=== PATIENT | female | born 2000 | race Caucasian/White ===

== ENCOUNTER 2019-01-14 21:40 | Outpatient (CLI) | payer MEDICAID | END 2019-01-15 00:04 | disposition home or self-care (01) | LOC: OBT 21:40 → L-D 21:42 | DX: O62.9 Abnormality of forces of labor, unspecified (principal); Z3A.39 39 weeks gestation of pregnancy | CPT/HCPCS: 76818 ==

== ENCOUNTER 2019-01-28 10:45 | Inpatient (IN) | payer MEDICAID ==
[2019-01-28] MEDS ORDERED: IBUPROFEN 600 MG TAB PO (12:30)
[2019-01-28] MEDS ORDERED: CARBOPROST 250 MCG INJ IM ×2 (12:30→18:30)
[2019-01-28] MEDS ORDERED: OXYTOCIN 30 UNITS/LR 500 ML IV ×6 (12:30→18:30)
[2019-01-28] MEDS ORDERED: MISOPROSTOL 200 MCG TAB PR ×2 (12:30→18:30)
[2019-01-28] MEDS ORDERED: LIDOCAINE 1% (MPF) 30 ML INJ INJ ×2 (12:30→18:30)
[2019-01-28] MEDS ORDERED: METHYLERGONOVINE 0.2 MG INJ IM ×2 (12:30→18:30)
[2019-01-28] MEDS ORDERED: BUTORPHANOL 2 MG INJ IV (12:30)
[2019-01-28 13:23] LABS: ADD MAN DIFF? NO
[2019-01-28 13:24] LABS: BASOPHIL # 0.1 10^3/ul (0.0-0.1); BASOPHILS % 0.5 % (0.0-2.0); EOSINOPHILS # 0.2 10^3/ul (0.0-0.5); EOSINOPHILS % 1.2 % (0.0-7.0); HEMATOCRIT 35.3 % (37.0-47.0); HEMOGLOBIN 11.3 g/dl (12.0-16.0); LYMPHOCYTES # 2.3 10^3/ul (0.8-2.9); LYMPHOCYTES % 17.1 % (18.0-55.0); MEAN CORPUSCULAR HEMOGLOBIN 26.1 pg (29.0-33.0); MEAN CORPUSCULAR VOLUME 81.5 fl (72.0-104.0); MEAN PLATELET VOLUME 10.5 fl (7.4-10.4); MONOCYTE # 0.7 10^3/ul (0.3-0.9); MONOCYTES % 5.6 % (0.0-13.0); NEUTROPHIL # 9.9 10^3/ul (1.6-7.5); NEUTROPHILS % 74.5 % (30.0-74.0); PLATELET COUNT 273 10^3/UL (140-415); RED BLOOD COUNT 4.33 10^6/ul (4.20-5.40); RED CELL DISTRIBUTION WIDTH 14.3 % (11.5-14.5)
[2019-01-28 13:24] LABS: WHITE BLOOD COUNT 13.3 10^3/ul (4.8-10.8)
[2019-01-28 13:45] LABS: INR 0.89; PROTIME 12.2 Sec (11.9-14.9)
[2019-01-28 13:46] LABS: PARTIAL THROMBOPLASTIN TIME 25.9 Sec (23.0-35.0)
[2019-01-28] MEDS: LACTATED RINGER'S 1,000 ML IV ×2 (13:56→20:23)
[2019-01-28 16:48] LABS: RAPID PLASMA REAGIN NONREACTIVE (NR)
[2019-01-28] MEDS ORDERED: MISOPROSTOL 50 MCG CAPSULE PO (22:30)
[2019-01-29] MEDS: LACTATED RINGER'S 1,000 ML IV ×5 (00:34→15:43)
[2019-01-29] MEDS: OXYTOCIN 30 UNITS/LR 500 ML IV ×2 (01:04→21:13)
[2019-01-29] MEDS ORDERED: FENTAnyl 2MCG/ML-ROPIV 0.2% 100 ML ×2 (03:38→10:57)
[2019-01-29] MEDS: ACETAMINOPHEN 500 MG TAB PO (15:25)
[2019-01-29] MEDS: CLINDAMYCIN 900 MG/D5W (PMX) 50 ML IVPB (15:26)
[2019-01-29] MEDS ORDERED: CEFAZOLIN 2 GM/50 ML (PMX) 50 ML IVPB ×2 (15:30→15:37)
[2019-01-29] MEDS: CITRIC ACID/NA CITRATE 30 ML CUP PO (15:44)
[2019-01-29] MEDS: FAMOTIDINE 20 MG INJ IV (15:44)
[2019-01-29] MEDS: METOCLOPRAMIDE 10 MG INJ IV (15:45)
[2019-01-29] MEDS ORDERED: morphine SULFATE/PF (10 MG/10 ML) INJ (15:57)
[2019-01-29] MEDS ORDERED: AMPICILLIN 2 GM/NS (PMX) 100 ML (15:59)
[2019-01-29] MEDS: GENTAMICIN 80 MG/NS (PMX) 50 ML IVPB ×2 (16:00→23:08)
[2019-01-29] MEDS ORDERED: LIDOCAINE 1.5%/EPI MPF (SDV) 30 ML VIAL (16:07)
[2019-01-29] MEDS ORDERED: PHENYLephrine (100 MCG/ML) 10ML SYG (16:20)
[2019-01-29] MEDS ORDERED: NA BICARBONATE 8.4% 50 ML SYG (16:20)
[2019-01-29] MEDS ORDERED: ONDANSETRON 4 MG INJ (16:25)
[2019-01-29] MEDS ORDERED: DIPHENHYDRAMINE 50 MG INJ IV ×2 (16:30→17:30)
[2019-01-29] MEDS ORDERED: ONDANSETRON 4 MG INJ IV ×2 (16:30→17:30)
[2019-01-29] MEDS ORDERED: FENTAnyl 50 MCG/ML VIAL IV ×2 (16:30)
[2019-01-29] MEDS ORDERED: HYDROmorphONE 1 MG/5 ML IV SYRINGE IV ×3 (16:30)
[2019-01-29] MEDS ORDERED: PROCHLORPERAZINE 10 MG INJ IV (16:30)
[2019-01-29] MEDS ORDERED: MEPERIDINE 25 MG INJ IV (16:30)
[2019-01-29] MEDS ORDERED: NALOXONE (0.4 MG/ML) INJ IV (17:30)
[2019-01-29] MEDS ORDERED: ZOLPIDEM 5 MG TAB PO (17:30)
[2019-01-29] MEDS ORDERED: HYDROmorphONE 0.5 MG/0.5 ML SYG IV ×2 (17:30)
[2019-01-29] MEDS: AMPICILLIN 2 GM/NS (PMX) 100 ML IVPB (18:00)
[2019-01-29] MEDS: FENTAnyl 50 MCG/ML VIAL IV (18:07)
[2019-01-29] MEDS: KETOROLAC 30 MG INJ IV (19:24)
[2019-01-29] MEDS ORDERED: MISOPROSTOL 200 MCG TAB PR (20:00)
[2019-01-29] MEDS ORDERED: CARBOPROST 250 MCG INJ IM (20:00)
[2019-01-29] MEDS ORDERED: METHYLERGONOVINE 0.2 MG INJ IM (20:00)
[2019-01-29] MEDS ORDERED: NACL 0.9% 3 ML SYG IV (20:00)
[2019-01-29] MEDS ORDERED: OXYTOCIN 30 UNITS/LR 500 ML IV (20:00)
[2019-01-29] MEDS: SENNA/DOCUSATE NA (8.6MG/50MG) TAB PO (21:42)
[2019-01-30] MEDS: AMPICILLIN 2 GM/NS (PMX) 100 ML IVPB ×3 (00:18→12:00)
[2019-01-30] MEDS: LANOLIN HPA 1 PKT TOP (00:19)
[2019-01-30] MEDS: CLINDAMYCIN 900 MG/D5W (PMX) 50 ML IVPB ×2 (03:03→09:12)
[2019-01-30] MEDS: KETOROLAC 30 MG INJ IV ×2 (05:20→14:20)
[2019-01-30] MEDS: GENTAMICIN 80 MG/NS (PMX) 50 ML IVPB (07:21)
[2019-01-30 07:24] LABS: ADD MAN DIFF? NO
[2019-01-30 07:29] LABS: BASOPHILS % 0.2 % (0.0-2.0); EOSINOPHILS # 0.1 10^3/ul (0.0-0.5); EOSINOPHILS % 0.3 % (0.0-7.0); HEMATOCRIT 25.4 % (37.0-47.0); HEMOGLOBIN 8.3 g/dl (12.0-16.0); LYMPHOCYTES % 10.7 % (18.0-55.0); MEAN CORPUSCULAR HEMOGLOBIN 26.3 pg (29.0-33.0); MEAN CORPUSCULAR HGB CONC 32.7 g/dl (32.0-37.0); MEAN CORPUSCULAR VOLUME 80.4 fl (72.0-104.0); MEAN PLATELET VOLUME 10.4 fl (7.4-10.4); MONOCYTE # 1.4 10^3/ul (0.3-0.9); MONOCYTES % 7.8 % (0.0-13.0); NEUTROPHIL # 14.7 10^3/ul (1.6-7.5); NEUTROPHILS % 80.4 % (30.0-74.0); PLATELET COUNT 191 10^3/UL (140-415); RED BLOOD COUNT 3.16 10^6/ul (4.20-5.40); RED CELL DISTRIBUTION WIDTH 14.6 % (11.5-14.5)
[2019-01-30 07:29] LABS: WHITE BLOOD COUNT 18.3 10^3/ul (4.8-10.8)
[2019-01-30] MEDS: SENNA/DOCUSATE NA (8.6MG/50MG) TAB PO ×2 (09:12→21:10)
[2019-01-30] MEDS: LACTATED RINGER'S 1,000 ML IV ×2 (11:30→19:30)
[2019-01-30] MEDS: CYANOCOBALAMIN 1000 MCG INJ IM (16:17)
[2019-01-30] MEDS: IBUPROFEN 600 MG TAB PO ×2 (18:00→23:38)
[2019-01-30] MEDS: FERROUS SULFATE (EC) 325 MG TAB PO (21:10)
[2019-01-30] MEDS: OXYCODONE/ACETAMINOPHEN (5/325) TAB PO (21:11)
[2019-01-31] MEDS: IBUPROFEN 600 MG TAB PO ×3 (06:00→17:56)
[2019-01-31] MEDS: OXYCODONE/ACETAMINOPHEN (5/325) TAB PO ×2 (09:38→23:49)
[2019-01-31] MEDS: FERROUS SULFATE (EC) 325 MG TAB PO ×3 (09:39→21:52)
[2019-01-31] MEDS: SENNA/DOCUSATE NA (8.6MG/50MG) TAB PO ×2 (09:39→21:52)
[2019-01-31] MEDS: PRENATAL VITAMIN PO (11:38)
[2019-02-01] MEDS: IBUPROFEN 600 MG TAB PO ×4 (06:05→18:01)
[2019-02-01 07:52] LABS: ADD MAN DIFF? NO
[2019-02-01 07:57] LABS: BASOPHILS % 0.2 % (0.0-2.0); EOSINOPHILS # 0.2 10^3/ul (0.0-0.5); EOSINOPHILS % 0.9 % (0.0-7.0); HEMATOCRIT 25.3 % (37.0-47.0); HEMOGLOBIN 8.2 g/dl (12.0-16.0); LYMPHOCYTES % 11.8 % (18.0-55.0); MEAN CORPUSCULAR HEMOGLOBIN 26.6 pg (29.0-33.0); MEAN CORPUSCULAR HGB CONC 32.4 g/dl (32.0-37.0); MEAN CORPUSCULAR VOLUME 82.1 fl (72.0-104.0); MEAN PLATELET VOLUME 9.7 fl (7.4-10.4); MONOCYTE # 0.7 10^3/ul (0.3-0.9); MONOCYTES % 4.1 % (0.0-13.0); NEUTROPHIL # 14.1 10^3/ul (1.6-7.5); NEUTROPHILS % 81.6 % (30.0-74.0); PLATELET COUNT 221 10^3/UL (140-415); RED BLOOD COUNT 3.08 10^6/ul (4.20-5.40); RED CELL DISTRIBUTION WIDTH 14.8 % (11.5-14.5)
[2019-02-01 07:57] LABS: WHITE BLOOD COUNT 17.3 10^3/ul (4.8-10.8)
[2019-02-01] MEDS: OXYCODONE/ACETAMINOPHEN (5/325) TAB PO ×2 (08:41→15:12)
[2019-02-01] MEDS: FERROUS SULFATE (EC) 325 MG TAB PO ×2 (08:41→12:17)
[2019-02-01] MEDS: SENNA/DOCUSATE NA (8.6MG/50MG) TAB PO (08:42)
[2019-02-01] MEDS: PRENATAL VITAMIN PO (08:42)
[2019-02-01] MEDS: DIPHTH/TET/ACEL PERTUSS (ADULT) 0.5 ML VIAL IM* (09:00)
== END 2019-02-01 18:30 | disposition home or self-care (01) | DRG 786 ==
LOC: OBT 10:45 → L-D 01-29 15:52 → PP1 01-29 19:39 → OBT 11:45 → L-D 11:57
PROVIDERS: Obstetrics & Gynecology
PROC: 10D00Z1 Extraction of Products of Conception, Low, Open Approach (ICD-10-PCS; principal; 2019-01-29)
DX: O76 Abnormality in fetal heart rate and rhythm complicating labor and delivery (principal); O41.1230 Chorioamnionitis, third trimester, not applicable or unspecified; O75.2 Pyrexia during labor, not elsewhere classified; O90.81 Anemia of the puerperium; Z37.0 Single live birth; Z3A.39 39 weeks gestation of pregnancy
CPT/HCPCS: 62319; 85025; 85610; 85730; 86592; 86850; 86900; 86901; 99464

== ENCOUNTER 2019-02-10 14:32 | Inpatient (IN) | payer MEDICAID ==
[2019-02-10 15:04] LABS: ADD MAN DIFF? NO
[2019-02-10 15:08] LABS: BASOPHIL # 0.1 10^3/ul (0.0-0.1); BASOPHILS % 0.3 % (0.0-2.0); EOSINOPHILS # 0.2 10^3/ul (0.0-0.5); EOSINOPHILS % 0.8 % (0.0-7.0); HEMOGLOBIN 9.2 g/dl (12.0-16.0); LYMPHOCYTES # 1.6 10^3/ul (0.8-2.9); LYMPHOCYTES % 7.9 % (18.0-55.0); MEAN CORPUSCULAR HEMOGLOBIN 25.6 pg (29.0-33.0); MEAN CORPUSCULAR HGB CONC 31.7 g/dl (32.0-37.0); MEAN CORPUSCULAR VOLUME 80.8 fl (72.0-104.0); MEAN PLATELET VOLUME 8.4 fl (7.4-10.4); MONOCYTE # 0.9 10^3/ul (0.3-0.9); MONOCYTES % 4.1 % (0.0-13.0); NEUTROPHIL # 17.7 10^3/ul (1.6-7.5); NEUTROPHILS % 85.4 % (30.0-74.0); PLATELET COUNT 494 10^3/UL (140-415); RED BLOOD COUNT 3.59 10^6/ul (4.20-5.40); RED CELL DISTRIBUTION WIDTH 14.2 % (11.5-14.5)
[2019-02-10 15:08] LABS: WHITE BLOOD COUNT 20.7 10^3/ul (4.8-10.8)
[2019-02-10] MEDS: morphine 4 MG/ML VIAL IV (15:19)
[2019-02-10] MEDS: ONDANSETRON 4 MG INJ IV (15:19)
[2019-02-10] MEDS: PIPER-TAZO 3.375 GM IV (PMX) 100 ML IVPB ×2 (15:20→21:13)
[2019-02-10] MEDS: SODIUM CHLORIDE 0.9% 1L BAG IV* (15:20)
[2019-02-10] MEDS: ACETAMINOPHEN 325 MG TAB PO (15:20)
[2019-02-10 15:23] LABS: INR 1.04; PROTIME 13.7 Sec (11.9-14.9); PT RATIO 1.1
[2019-02-10 15:26] LABS: ALBUMIN 3.5 g/dl (3.3-4.9); ALKALINE PHOSPHATASE 159 IU/L (42-121); ANION GAP 10 (5-13); ASPARTATE AMINO TRANSFERASE 16 IU/L (15-46); BILIRUBIN,INDIRECT 0.4 mg/dl (0-1.1); BILIRUBIN,TOTAL 0.4 mg/dl (0.2-1.3); BLOOD UREA NITROGEN 11 mg/dl (7-20); CARBON DIOXIDE 29 mmol/L (21-31); CHLORIDE 101 mmol/L (97-110); CREATININE 0.71 mg/dl (0.44-1.00); Estimated GFR > 60 mL/min (>60); GLUCOSE 120 mg/dl (70-220); POTASSIUM 3.5 mmol/L (3.5-5.1); SODIUM 140 mmol/L (135-144)
[2019-02-10 15:31] LABS: ALANINE AMINOTRANSFERASE < 6 IU/L (13-69)
[2019-02-10 15:37] LABS: TROPONIN-I < 0.012 ng/ml (0.000-0.120)
[2019-02-10 15:52] LABS: ADD UMIC YES; UR ASCORBIC ACID NEGATIVE (NEGATIVE); UR BACTERIA FEW /HPF (NONE SEEN); UR BILIRUBIN (Dip) NEGATIVE (NEGATIVE); UR BLOOD (Dip) 3+ mg/dL (NEGATIVE); UR CLARITY TURBID (CLEAR); UR COLOR YELLOW (YELLOW); UR GLUCOSE (Dip) NEGATIVE (NEGATIVE); UR KETONES (Dip) TRACE mg/dL (NEGATIVE); UR LEUKOCYTE ESTERASE (Dip) 2+ Leu/ul (NEGATIVE); UR NITRITE (Dip) NEGATIVE (NEGATIVE); UR RBC > 182 /HPF (0-5); UR SPECIFIC GRAVITY (Dip) 1.012 (1.003-1.030); UR TOTAL PROTEIN (Dip) 2+ mg/dl (NEGATIVE); UR UROBILINOGEN (Dip) NEGATIVE (NEGATIVE); UR WBC > 182 /HPF (0-5)
[2019-02-10] MEDS: IOHEXOL 300MG/ML 150 ML BTL (16:26)
[2019-02-10] MEDS: SOD CHLORIDE 0.9% 100 ML (16:26)
[2019-02-10] MEDS ORDERED: ONDANSETRON 4 MG INJ IV ×2 (16:30→17:00)
[2019-02-10] MEDS ORDERED: ACETAMINOPHEN 325 MG TAB PO ×2 (16:30→17:00)
[2019-02-10] MEDS: VANCOMYCIN 1 GM (PMX) 250 ML IVPB (16:42)
[2019-02-10] MEDS ORDERED: NACL 0.9% 3 ML SYG IV (17:00)
[2019-02-10] MEDS ORDERED: VANCOMYCIN IV PER PHARMACY XX (17:00)
[2019-02-10 21:47] LABS: LACTIC ACID 0.9 mmol/L (0.5-2.0)
[2019-02-10] MEDS: HYDROCODONE/APAP (5/325) TAB PO (22:39)
[2019-02-10] MEDS: VANCOMYCIN 750 MG (PMX) 250 ML IVPB (23:49)
[2019-02-11] MEDS: PIPER-TAZO 3.375 GM IV (PMX) 100 ML IVPB ×3 (05:49→21:54)
[2019-02-11 06:12] LABS: ADD MAN DIFF? NO
[2019-02-11] MEDS: VANCOMYCIN 750 MG (PMX) 250 ML IVPB ×3 (06:24→23:20)
[2019-02-11 06:36] LABS: BASOPHIL # 0.1 10^3/ul (0.0-0.1); BASOPHILS % 0.4 % (0.0-2.0); EOSINOPHILS # 0.4 10^3/ul (0.0-0.5); EOSINOPHILS % 2.1 % (0.0-7.0); HEMATOCRIT 27.5 % (37.0-47.0); HEMOGLOBIN 8.5 g/dl (12.0-16.0); LYMPHOCYTES # 2.8 10^3/ul (0.8-2.9); LYMPHOCYTES % 15.8 % (18.0-55.0); MEAN CORPUSCULAR HEMOGLOBIN 25.7 pg (29.0-33.0); MEAN CORPUSCULAR HGB CONC 30.9 g/dl (32.0-37.0); MEAN CORPUSCULAR VOLUME 83.1 fl (72.0-104.0); MONOCYTES % 5.6 % (0.0-13.0); NEUTROPHIL # 13.3 10^3/ul (1.6-7.5); NEUTROPHILS % 74.3 % (30.0-74.0); PLATELET COUNT 529 10^3/UL (140-415); RED BLOOD COUNT 3.31 10^6/ul (4.20-5.40); RED CELL DISTRIBUTION WIDTH 14.4 % (11.5-14.5)
[2019-02-11 06:52] LABS: ALANINE AMINOTRANSFERASE 18 IU/L (13-69); ALBUMIN 2.7 g/dl (3.3-4.9); ALBUMIN/GLOBULIN RATIO 0.93; ALKALINE PHOSPHATASE 116 IU/L (42-121); ANION GAP 9 (5-13); ASPARTATE AMINO TRANSFERASE 13 IU/L (15-46); BILIRUBIN,INDIRECT 0.2 mg/dl (0-1.1); BILIRUBIN,TOTAL 0.2 mg/dl (0.2-1.3); BLOOD UREA NITROGEN 7 mg/dl (7-20); CALCIUM 8.5 mg/dl (8.4-10.2); CARBON DIOXIDE 26 mmol/L (21-31); CHLORIDE 105 mmol/L (97-110); Estimated GFR > 60 mL/min (>60); GLUCOSE 81 mg/dl (70-220); MAGNESIUM 1.9 mg/dl (1.7-2.5); PHOSPHORUS 5.2 mg/dl (2.5-4.9); POTASSIUM 3.9 mmol/L (3.5-5.1); SODIUM 140 mmol/L (135-144); TOTAL PROTEIN 5.6 g/dl (6.1-8.1)
[2019-02-11 07:24] LABS: THYROID STIMULATING HORMONE 0.963 MIU/L (0.465-4.680)
[2019-02-11 07:29] LABS: HEMOGLOBIN A1C 5.6 % (0-5.9)
[2019-02-11] MEDS: HYDROCODONE/APAP (5/325) TAB PO (09:35)
[2019-02-11] MEDS: LIDOCAINE 1% (MDV) 20 ML INJ (12:11)
[2019-02-11] MEDS: FENTAnyl 50 MCG/ML VIAL (12:14)
[2019-02-11] MEDS: DIPHENHYDRAMINE 50 MG INJ (12:14)
[2019-02-11 14:23] LABS: VANCOMYCIN,TROUGH 13.8 ug/ml (10.0-20.0)
[2019-02-12] MEDS ORDERED: MAGNESIUM HYDROXIDE 30ML CUP PO (04:00)
[2019-02-12] MEDS: MAGNESIUM HYDROXIDE 30ML CUP PO (04:02)
[2019-02-12] MEDS: PIPER-TAZO 3.375 GM IV (PMX) 100 ML IVPB ×3 (05:03→21:31)
[2019-02-12 05:49] LABS: ADD MAN DIFF? NO
[2019-02-12] MEDS: VANCOMYCIN 750 MG (PMX) 250 ML IVPB ×3 (05:55→23:06)
[2019-02-12 05:57] LABS: WHITE BLOOD COUNT 14.5 10^3/ul (4.8-10.8)
[2019-02-12 05:57] LABS: BASOPHIL # 0.1 10^3/ul (0.0-0.1); BASOPHILS % 0.6 % (0.0-2.0); EOSINOPHILS # 0.3 10^3/ul (0.0-0.5); EOSINOPHILS % 1.9 % (0.0-7.0); HEMATOCRIT 27.3 % (37.0-47.0); HEMOGLOBIN 8.6 g/dl (12.0-16.0); MEAN CORPUSCULAR HEMOGLOBIN 25.8 pg (29.0-33.0); MEAN CORPUSCULAR HGB CONC 31.5 g/dl (32.0-37.0); MEAN PLATELET VOLUME 9.1 fl (7.4-10.4); MONOCYTE # 0.7 10^3/ul (0.3-0.9); MONOCYTES % 4.9 % (0.0-13.0); NEUTROPHILS % 76.1 % (30.0-74.0); PLATELET COUNT 576 10^3/UL (140-415); RED BLOOD COUNT 3.33 10^6/ul (4.20-5.40); RED CELL DISTRIBUTION WIDTH 14.2 % (11.5-14.5)
[2019-02-12 06:12] LABS: ANION GAP 12 (5-13); BLOOD UREA NITROGEN 4 mg/dl (7-20); CALCIUM 8.8 mg/dl (8.4-10.2); CARBON DIOXIDE 27 mmol/L (21-31); CHLORIDE 103 mmol/L (97-110); CREATININE 0.69 mg/dl (0.44-1.00); Estimated GFR > 60 mL/min (>60); GLUCOSE 92 mg/dl (70-220); POTASSIUM 3.7 mmol/L (3.5-5.1); SODIUM 142 mmol/L (135-144)
[2019-02-12 06:27] LABS: PHOSPHORUS 5.5 mg/dl (2.5-4.9)
[2019-02-12 06:27] LABS: MAGNESIUM 1.8 mg/dl (1.7-2.5)
[2019-02-12] MEDS: HYDROCODONE/APAP (5/325) TAB PO ×2 (08:56→21:40)
[2019-02-12] MEDS: SOD CHLORIDE 0.45% 1,000 ML IV (16:12)
[2019-02-13] MEDS: SOD CHLORIDE 0.45% 1,000 ML IV ×3 (04:50→18:10)
[2019-02-13] MEDS: PIPER-TAZO 3.375 GM IV (PMX) 100 ML IVPB ×3 (05:41→22:07)
[2019-02-13 05:59] LABS: WHITE BLOOD COUNT 10.8 10^3/ul (4.8-10.8)
[2019-02-13 05:59] LABS: ABNORMAL IP MESSAGE 1; HEMATOCRIT 27.8 % (37.0-47.0); HEMOGLOBIN 8.5 g/dl (12.0-16.0); MEAN CORPUSCULAR HEMOGLOBIN 25.5 pg (29.0-33.0); MEAN CORPUSCULAR HGB CONC 30.6 g/dl (32.0-37.0); MEAN CORPUSCULAR VOLUME 83.5 fl (72.0-104.0); MEAN PLATELET VOLUME 8.6 fl (7.4-10.4); PLATELET COUNT 588 10^3/UL (140-415); RED BLOOD COUNT 3.33 10^6/ul (4.20-5.40); RED CELL DISTRIBUTION WIDTH 14.1 % (11.5-14.5)
[2019-02-13 06:07] LABS: ADD MAN DIFF? YES; POSITIVE DIFF @See below
[2019-02-13] MEDS: VANCOMYCIN 750 MG (PMX) 250 ML IVPB ×3 (06:21→23:44)
[2019-02-13 06:36] LABS: PHOSPHORUS 5.5 mg/dl (2.5-4.9)
[2019-02-13 06:36] LABS: MAGNESIUM 2.2 mg/dl (1.7-2.5)
[2019-02-13 06:37] LABS: ANION GAP 9 (5-13); BLOOD UREA NITROGEN 4 mg/dl (7-20); CALCIUM 8.7 mg/dl (8.4-10.2); CARBON DIOXIDE 25 mmol/L (21-31); CHLORIDE 108 mmol/L (97-110); CREATININE 0.73 mg/dl (0.44-1.00); Estimated GFR > 60 mL/min (>60); GLUCOSE 76 mg/dl (70-220); POTASSIUM 3.9 mmol/L (3.5-5.1); SODIUM 142 mmol/L (135-144)
[2019-02-13 07:56] LABS: ANISOCYTOSIS 3+ (0-0); EOSINOPHILS % (M) 4 % (0-7); HYPOCHROMASIA 1+ (0-0); LYMPHOCYTES #M 2.2 10^3/ul (0.8-2.9); LYMPHOCYTES % (M) 21 % (18-55); METAMYELOCYTES #M 0.1 10^3/ul (0.0-0.0); METAMYELOCYTES %M 1 % (0-0); MICROCYTOSIS 2+ (0-0); MONOCYTE #M 0.4 10^3/ul (0.3-0.9); MONOCYTES % (M) 4 % (0-13); MYELOCYTES #M 0.2 10^3/ul (0.0-0.0); MYELOCYTES % (M) 2 % (0-0); PLATELET ESTIMATE INCREASED; POLYCHROMASIA 1+ (0-0); REACTIVE LYMPHOCYTES #M 0.2 10^3/ul (0.0-0.0); REACTIVE LYMPHOCYTES% (M) 2 % (0-0); SEGMENTED NEUTROPHILS (M) % 66 % (30-74); SMUDGE%M 3 % (0-0)
[2019-02-13] MEDS: HYDROCODONE/APAP (5/325) TAB PO (19:38)
[2019-02-14] MEDS: PIPER-TAZO 3.375 GM IV (PMX) 100 ML IVPB ×3 (05:36→22:42)
[2019-02-14] MEDS: HYDROCODONE/APAP (5/325) TAB PO (05:42)
[2019-02-14] MEDS: VANCOMYCIN 750 MG (PMX) 250 ML IVPB ×3 (07:01→20:20)
[2019-02-14] MEDS: SOD CHLORIDE 0.45% 1,000 ML IV ×3 (07:30→20:26)
[2019-02-14 15:17] LABS: VANCOMYCIN,TROUGH 21.7 ug/ml (10.0-20.0)
[2019-02-14 15:30] LABS: ADD MAN DIFF? NO
[2019-02-14 15:31] LABS: WHITE BLOOD COUNT 12.9 10^3/ul (4.8-10.8)
[2019-02-14 15:31] LABS: BASOPHIL # 0.1 10^3/ul (0.0-0.1); BASOPHILS % 0.5 % (0.0-2.0); EOSINOPHILS # 0.5 10^3/ul (0.0-0.5); EOSINOPHILS % 3.5 % (0.0-7.0); LYMPHOCYTES # 2.6 10^3/ul (0.8-2.9); LYMPHOCYTES % 20.1 % (18.0-55.0); MEAN CORPUSCULAR HEMOGLOBIN 25.3 pg (29.0-33.0); MEAN CORPUSCULAR VOLUME 81.5 fl (72.0-104.0); MEAN PLATELET VOLUME 8.2 fl (7.4-10.4); MONOCYTES % 7.3 % (0.0-13.0); NEUTROPHIL # 8.2 10^3/ul (1.6-7.5); NEUTROPHILS % 63.6 % (30.0-74.0); PLATELET COUNT 575 10^3/UL (140-415); RED BLOOD COUNT 3.56 10^6/ul (4.20-5.40); RED CELL DISTRIBUTION WIDTH 14.1 % (11.5-14.5)
[2019-02-14 15:48] LABS: ANION GAP 13 (5-13); BLOOD UREA NITROGEN 7 mg/dl (7-20); CALCIUM 8.9 mg/dl (8.4-10.2); CARBON DIOXIDE 23 mmol/L (21-31); CHLORIDE 107 mmol/L (97-110); CREATININE 0.99 mg/dl (0.44-1.00); Estimated GFR > 60 mL/min (>60); GLUCOSE 103 mg/dl (70-220); POTASSIUM 3.4 mmol/L (3.5-5.1); SODIUM 143 mmol/L (135-144)
[2019-02-14] MEDS: POTASSIUM CHLORIDE (SR) 20 MEQ TAB PO (20:20)
[2019-02-15] MEDS: HYDROCODONE/APAP (5/325) TAB PO (00:47)
[2019-02-15 05:09] LABS: WHITE BLOOD COUNT 12.1 10^3/ul (4.8-10.8)
[2019-02-15 05:09] LABS: ABNORMAL IP MESSAGE 1; HEMATOCRIT 29.5 % (37.0-47.0); HEMOGLOBIN 9.2 g/dl (12.0-16.0); MEAN CORPUSCULAR HEMOGLOBIN 25.6 pg (29.0-33.0); MEAN CORPUSCULAR HGB CONC 31.2 g/dl (32.0-37.0); MEAN CORPUSCULAR VOLUME 81.9 fl (72.0-104.0); MEAN PLATELET VOLUME 8.2 fl (7.4-10.4); PLATELET COUNT 597 10^3/UL (140-415); RED CELL DISTRIBUTION WIDTH 14.3 % (11.5-14.5)
[2019-02-15 05:15] LABS: ADD MAN DIFF? YES; POSITIVE DIFF @See below
[2019-02-15 05:25] LABS: ANION GAP 13 (5-13); BLOOD UREA NITROGEN 5 mg/dl (7-20); CALCIUM 8.9 mg/dl (8.4-10.2); CARBON DIOXIDE 25 mmol/L (21-31); CHLORIDE 106 mmol/L (97-110); CREATININE 1.05 mg/dl (0.44-1.00); Estimated GFR > 60 mL/min (>60); GLUCOSE 80 mg/dl (70-220); SODIUM 144 mmol/L (135-144)
[2019-02-15] MEDS: PIPER-TAZO 3.375 GM IV (PMX) 100 ML IVPB ×2 (06:21→13:24)
[2019-02-15 07:29] LABS: ANISOCYTOSIS 2+ (0-0); EOSINOPHILS % (M) 4 % (0-7); LYMPHOCYTES #M 2.6 10^3/ul (0.8-2.9); LYMPHOCYTES % (M) 22 % (18-55); METAMYELOCYTES #M 0.1 10^3/ul (0.0-0.0); METAMYELOCYTES %M 1 % (0-0); MICROCYTOSIS 2+ (0-0); MONOCYTE #M 0.6 10^3/ul (0.3-0.9); MONOCYTES % (M) 5 % (0-13); MYELOCYTES #M 0.1 10^3/ul (0.0-0.0); MYELOCYTES % (M) 1 % (0-0); PLATELET ESTIMATE INCREASED; POIKILOCYTOSIS 1+ (0-0); POLYCHROMASIA 1+ (0-0); REACTIVE LYMPHOCYTES #M 0.1 10^3/ul (0.0-0.0); REACTIVE LYMPHOCYTES% (M) 1 % (0-0); SEGMENTED NEUTROPHILS (M) % 66 % (30-74); SMUDGE%M 5 % (0-0)
[2019-02-15] MEDS: VANCOMYCIN 750 MG (PMX) 250 ML IVPB (07:58)
[2019-02-15] MEDS: SOD CHLORIDE 0.45% 1,000 ML IV (13:24)
== END 2019-02-15 16:45 | disposition home or self-care (01) | DRG 776 ==
LOC: E/R 14:32 → 2NE 16:05
DX: O86.01 Infection of obstetric surgical wound, superficial incisional site (principal); O86.04 Sepsis following an obstetrical procedure; A41.9 Sepsis, unspecified organism; O86.29 Other urinary tract infection following delivery
CPT/HCPCS: 71045; 72192; 74177; 76536; 80048; 80053; 80202; 81001; 83036; 83605; 83735; 84100; 84443; 84484; 85025; 85610; 85730; 87040; 87070; 87081; 87086; 87400; 93005; 96365; 96375; 99291-25